=== PATIENT | female | born 1945 | race Caucasian/White ===

== ENCOUNTER → 2018-01-22 | Outpatient (CLI) | payer MEDICARE ==
[~2018-01-22] MED LIST: ASCO500 PO; CEPH500 PO; ERGO400 PO; FLAX PO; HYDCHL25; Hair, Skin & N1 EACH PO; IBUP800 PO; LEVFLO500 PO; LEVO750 PO; LEVSOD150; LORA1 PO; MECL25 PO; METR500 PO; ONDA4 PO; ONDA4ODT MM; RASPBERRY KETO100 MG PO; RXCLIN PO; RXLORA1 PO; RXONDA4ODT MM
== END | disposition home or self-care (01) ==
LOC: LAB SHORT 16:38 → OLS 16:38
PROVIDERS: Obstetrics & Gynecology Gynecology
DX: Z91.89 Other specified personal risk factors, not elsewhere classified (principal)
CPT/HCPCS: 87624; G0123

== ENCOUNTER → 2018-02-19 | Outpatient (CLI) | payer MEDICARE | END | disposition home or self-care (01) | LOC: LAB 17:00 → LAB SHORT 17:00 | DX: L29.8 Other pruritus (principal); L90.0 Lichen sclerosus et atrophicus | CPT/HCPCS: 87070; 87205 ==

== ENCOUNTER → 2019-02-04 | Outpatient (CLI) | payer MEDICARE ==
[2019-02-06 14:06] LABS: HPV 16 Negative (Negative); HPV 18 Negative (Negative); HPV OTHER HR TYPES Negative (Negative)
== END | disposition home or self-care (01) ==
LOC: LAB 18:18 → LAB SHORT 18:18
PROVIDERS: Obstetrics & Gynecology Gynecology
DX: Z91.89 Other specified personal risk factors, not elsewhere classified (principal)
CPT/HCPCS: 87624; G0123

== ENCOUNTER → 2019-12-21 | Outpatient (CLI) | payer MEDICARE | LOC: LAB SHORT 17:47 → LAB 17:47 | DX: Z48.817 Encounter for surgical aftercare following surgery on the skin and subcutaneous tissue (principal); L08.9 Local infection of the skin and subcutaneous tissue, unspecified; D48.5 Neoplasm of uncertain behavior of skin | CPT/HCPCS: 87070; 87077; 87147; 87186; 87205 ==

== ENCOUNTER 2021-03-20 14:15 | Day surgery (SDC) | payer MEDICARE ==
[~2021-03-20] VITALS: Ht 172.7 cm; Wt 113.5 kg
[2021-03-20] MEDS ORDERED: DULO30 (14:30)
--- NOTE | 2021-03-20 15:39 | NUR ---
03/20/21 1539 Rai Dudley S LATE ENTRY-1512 PATIENT STATES SHE IS READY TO GO HOME. PAIN IS ABOUT AN 8/10 IN BACK AND HIPS WHICH IS WHAT SHE CAME IN WITH.
== END 2021-03-20 15:15 | disposition home or self-care (01) ==
LOC: ORSCSDS 14:15
PROVIDERS: Anesthesiology
PROC: 3E0R33Z Introduction of Anti-inflammatory into Spinal Canal, Percutaneous Approach (ICD-10-PCS; principal; 2021-03-20 15:00)
DX: M54.16 Radiculopathy, lumbar region (principal); M96.1 Postlaminectomy syndrome, not elsewhere classified; I10 Essential (primary) hypertension; F32.9 Major depressive disorder, single episode, unspecified; E03.9 Hypothyroidism, unspecified; E66.9 Obesity, unspecified; Z68.39 Body mass index [BMI] 39.0-39.9, adult; Z79.899 Other long term (current) drug therapy
CPT/HCPCS: J1040

== ENCOUNTER 2023-05-18 22:54 | Inpatient (IN) | payer OTHER ==
[~2023-05-18] VITALS: Ht 177.8 cm; Wt 110.4 kg
[~2023-05-18 22:54] MED LIST changes: +DULO30
[2023-05-18 23:37] LABS: BASOPHILS ABSOLUTE AUTO 0.14 K/mm3 (0.00-0.23); BASOPHILS PERCENT AUTO 1 % (0-2); EOSINOPHILS ABSOLUTE AUTO 0.05 K/mm3 (0.00-0.68); EOSINOPHILS PERCENT AUTO 0 % (0-6); Hematocrit 38.6 % (33.0-51.0); Hemoglobin 12.2 g/dL (11.5-16.0); IMMATURE GRAN ABSOLUTE AUTO 0.31 K/mm3 (0.00-0.10); IMMATURE GRAN PERCENT AUTO 1 % (0-1); LYMPHOCYTES ABSOLUTE AUTO 1.09 K/mm3 (0.84-5.20); LYMPHOCYTES PERCENT AUTO 4 % (21-46); MONOCYTES ABSOLUTE AUTO 2.13 K/mm3 (0.16-1.47); MONOCYTES PERCENT AUTO 8 % (4-13); Mean Corpuscular HGB 20.6 pg (26.0-34.0); Mean Corpuscular HGB Conc 31.6 g/dL (31.5-36.5); Mean Corpuscular Volume 65 fL (80-100); NEUTROPHILS ABSOLUTE AUTO 23.83 K/mm3 (1.96-9.15); NEUTROPHILS PERCENT AUTO 87 % (41-73); Platelet Count 308 K/mm3 (150-400); RDW Coefficient Variation 16.7 % (11.7-14.2); RDW Standard Deviation 35.5 fL (35.1-46.3); Red Blood Cell Count 5.91 M/mm3 (3.80-5.20); White Blood Cell Count 27.55 K/mm3 (4.00-11.30)
[2023-05-19 00:12] LABS: Albumin, Blood 4.1 g/dL (3.4-5.0); Bilirubin, Total 0.5 mg/dL (0.1-1.0); Bun/Creatinine Ratio 32.9 (12.0-20.0); Calcium, Blood 9.9 mg/dL (8.5-10.1); Creatinine, Blood 0.67 mg/dL (0.40-1.00); Globulin, Blood 4.3 g/dL (2.2-4.0); Potassium, Blood 3.1 mmol/L (3.5-5.5); Total Protein, Blood 8.4 g/dL (6.4-8.2)
[2023-05-19 00:50] LABS: Magnesium, Blood 1.6 mg/dL (1.6-2.4)
--- NOTE | 2023-05-19 03:00 | NUR ---
ADMISSION REPORT RECEIVED FROM ER NURSE. PATIENT ARRIVES TO PCU 02. ABLE TO AMBULATE INTO BATHROOM WITH MINIMAL ASSIST AND IS ABLE TO VOID. PATIENT IS ALERT AND ORIENTED, STATES "I'M GROGGY FROM BEING HERE", ABLE TO ANSWER ALL QUESTIONS APPROPRIATELY. BP STABLE, TELE READING SINUS TACH 103, PATIENT ON RA WITH O2 SAT >90%. PATIENT ARRIVED TO PCU WITH SECOND NS BOLUS INFUSING PER ER ORDERS. RIGHT LOWER LEG OUTLINED AND TIMED BY ER NURSE. LEG IS WARM TO TOUCH AND PATIENT REPORTS PAIN. PEDAL PULSES PALPABLE AND STRONG BILATERALLY. MINIMAL SWELLING TO BILAT LOWER EXTREMS. ORIENTED TO ROOM AND CALL LIGHT SYSTEM, BED IN LOW POSITION.
[2023-05-19 03:21] VITALS: BP 146/61
[2023-05-19 03:47] LABS: Anti-Xa UFH, PHA Monitoring <0.10 IU/mL; International Normalized Ratio 0.99; Prothrombin Time Results 10.4 Sec (9.7-11.5)
--- NOTE | 2023-05-19 04:00 | NUR ---
UPDATE CRITICAL LACTIC ACID REPORTED TO THIS RN. CALL PLACED TO HOSPITALIST DR. SULLIVAN WITH RESULT. ORDERS RECIEVED FOR ADDITIONAL 1000ml BOLUS ORDERED AND REPEAT LACTIC DRAW AT 0600. KUNAL MCCULLOUGH AT BEDSIDE PLACING POWERGLIDE.
[2023-05-19 06:11] LABS: Hematocrit 31.4 % (33.0-51.0); Mean Corpuscular HGB 20.7 pg (26.0-34.0); Mean Corpuscular HGB Conc 31.8 g/dL (31.5-36.5); Mean Corpuscular Volume 65 fL (80-100); Mean Platelet Volume 9.9 fL (9.1-12.4); Platelet Count 277 K/mm3 (150-400); RDW Coefficient Variation 15.7 % (11.7-14.2); RDW Standard Deviation 35.3 fL (35.1-46.3); Red Blood Cell Count 4.83 M/mm3 (3.80-5.20); White Blood Cell Count 31.08 K/mm3 (4.00-11.30)
[2023-05-19 06:29] LABS: Bun/Creatinine Ratio 31.5 (12.0-20.0); Calcium, Blood 8.2 mg/dL (8.5-10.1); Creatinine, Blood 0.64 mg/dL (0.40-1.00); Potassium, Blood 3.5 mmol/L (3.5-5.5)
[2023-05-19 08:02] VITALS: BP 148/65
[2023-05-19 15:55] VITALS: BP 134/57
--- NOTE | 2023-05-19 16:11 | NUR ---
SHIFT SUMMARY PT IS A&OX3, BUT IS PRETTY DROWSY AFTER BEING MEDICATED FOR HER RLE PAIN. SHE CAN MAKE SOME CONFUSED COMMENTS WHEN SHE IS MEDICATED. SHE HAS BEEN HAVING CONSISTENT SHARP PAIN IN HER RLE. THE PT IS A 1P SBA W/ FWW TO THE BATHROOM. SHE HAS BEEN SWITCHED TO A HSS AND WAS MEDICATED AT BREAKFAST AND LUNCH WITH 3 UNITS PER HSC. AT DINNER PT'S CBG WAS 104 AND DID NOT NEED COVERAGE. SHE IS MEDICAL NO TELE AND HAS DENIED ANY ANGINA. SHE HAS BEEN ON RA AND SP02 >93% W/ NO SX OF SOB. PT STARTED ON ZOSYN IV IN ADDITION TO VANCOMYCIN FOR ANTIBIOTICS COVERAGE. FAMILY HAS BEEN INTO SEE THE PT AND THEY WERE UPDATED ON CARE PER PT REQUEST. FIRE IGNITION RISK HAS BEEN ASSESSED AND NO RISK HAS BEEN NOTIFIED AT
--- NOTE | 2023-05-19 17:15 | NUR ---
ASSUMED CARE OF PT: RECEIVED REPORT FROM KUNAL CARBALLO. PT RESTING IN BED WITH EYES CLOSED, NO ACUTE DISTRESS NOTED. PT's GRANDDAUGHTER IS AT BEDSIDE. WILL CONTINUE TO MONITOR AND TREAT ACCORDINGLY UNTIL CHANGE OF SHIFT.
[2023-05-19 20:26] VITALS: BP 142/71
[2023-05-20 00:22] VITALS: BP 141/62
[2023-05-20 03:21] VITALS: BP 146/71
[2023-05-20 03:45] LABS: BASOPHILS ABSOLUTE AUTO 0.08 K/mm3 (0.00-0.23); BASOPHILS PERCENT AUTO 0 % (0-2); EOSINOPHILS ABSOLUTE AUTO 0.01 K/mm3 (0.00-0.68); EOSINOPHILS PERCENT AUTO 0 % (0-6); Hematocrit 28.1 % (33.0-51.0); IMMATURE GRAN ABSOLUTE AUTO 0.21 K/mm3 (0.00-0.10); IMMATURE GRAN PERCENT AUTO 1 % (0-1); LYMPHOCYTES ABSOLUTE AUTO 1.18 K/mm3 (0.84-5.20); LYMPHOCYTES PERCENT AUTO 7 % (21-46); MONOCYTES ABSOLUTE AUTO 0.94 K/mm3 (0.16-1.47); MONOCYTES PERCENT AUTO 5 % (4-13); Mean Corpuscular HGB 20.6 pg (26.0-34.0); Mean Corpuscular Volume 64 fL (80-100); Mean Platelet Volume 10.1 fL (9.1-12.4); NEUTROPHILS ABSOLUTE AUTO 15.75 K/mm3 (1.96-9.15); NEUTROPHILS PERCENT AUTO 87 % (41-73); Platelet Count 208 K/mm3 (150-400); RDW Coefficient Variation 15.6 % (11.7-14.2); RDW Standard Deviation 35.8 fL (35.1-46.3); Red Blood Cell Count 4.36 M/mm3 (3.80-5.20); White Blood Cell Count 18.17 K/mm3 (4.00-11.30)
[2023-05-20 04:18] LABS: Albumin, Blood 2.9 g/dL (3.4-5.0); Anion Gap 3 mmol/L (6-16); Blood Urea Nitrogen 18 mg/dL (8-24); Bun/Creatinine Ratio 26.4 (12.0-20.0); CO2, Blood 28 mmol/L (21-32); Calcium, Blood 8.1 mg/dL (8.5-10.1); Chloride, Blood 99 mmol/L (98-108); Creatinine, Blood 0.68 mg/dL (0.40-1.00); Glomerular Filtration Rate 89 (60-); Glucose, Blood 149 mg/dL (70-99); Magnesium, Blood 1.7 mg/dL (1.6-2.4); Phosphorus, Blood 1.9 mg/dL (2.5-4.9); Potassium, Blood 2.9 mmol/L (3.5-5.5); Sodium, Blood 130 mmol/L (136-145)
--- NOTE | 2023-05-20 06:04 | NUR ---
SHIFT SUMMARY PT A/OX4 AND COOPERATIVE OF CARE. PT ABLE TO EXPRESS NEEDS AND CALLS APPROPIATE. VSS THROUGHOUT SHIFT WITH O2 SATS IN THE 90'S ON RA. PT INDEPENDENT IN BED AND SBA TO TOILET WITH FWW, TOLERATES WELL. NO REPORT OF CHEST PAIN/PRESSURE THROUGHOUT SHIFT. NO REORT OF SOB/DYSPNEA THROUGHOUT SHIFT. PT REPORTED PAIN TO RLE, TREATED PER EMAR. IV ABX RAN PER ORDERS. NO ACCUTE EPISODE DURING SHIFT.
[2023-05-20 08:27] VITALS: BP 152/66
[2023-05-20 11:39] VITALS: BP 137/59
[2023-05-20 15:49] VITALS: BP 149/78
[2023-05-20 17:31] LABS: Phosphorus, Blood 1.8 mg/dL (2.5-4.9); Potassium, Blood 3.1 mmol/L (3.5-5.5)
--- NOTE | 2023-05-20 18:49 | NUR ---
SHIFT SUMMARY: PT NAPS OFTEN, EASY TO WAKE, ORIENTED x4, COOPERATIVE W/CARE AND ABLE TO MAKE NEEDS KNOWN. O2 SATS >92% ON RA. PT DENIES SOB AND/OR CP. PT W/LOW GRADE TEMP IN THE AM, RESPONDS WELL TO TYLENOL. REDNESS CONTINUES TO RLE, IV ABX INFUSED PER ORDERS, BLOOD CULTURES PENDING. PT CONTINUES TO BE 1P ASSIST W/FWW TO BSC. AT THIS TIME, PT IS RESTING QUIETLY IN BED. WILL CONTINUE TO MONITOR AND TREAT ACCORDINGLY UNTIL CHANGE OF SHIFT.
[2023-05-20 20:00] VITALS: BP 143/66
[2023-05-21 00:18] VITALS: BP 169/99
[2023-05-21 00:34] LABS: Vancomycin, Trough 4.4 ug/mL (5.0-10.0)
--- NOTE | 2023-05-21 04:12 | NUR ---
ASSUMPTION OF CARE, SHIFT SUMMARY AND TRANSFER NOTE THIS RN ASSUMED CARE OF PT AT 1915, REPORT FROM PRISCILA SYED. PT A&O X4; PLEASANT AND COOPERATIVE WITH CARE. VSS; PT ON RA, SPO2 >96%. 99.7 TEMPERATURE. PT C/O OF RLE PAIN, MEDICATION PER EMAR. REDNESS IS NOTED TO HAVE SPREAD OUTSIDE PREVIOUS MARKINGS, ALSO SPREADING UP TO THIGH AREA. THIS RN REMARKED NEW AREA. RED AREAS HOT TO THE TOUCH. PT ABLE TO AMBULATE TO RESTROOM OR BSC W/SBA AND FWW. THIS RN NOTES PT IS WEAK AND BECOME FATIGUED EASILY, ALSO SOME DYSPNEA NOTED WITH EXERTION. SPO2 MAINTAINS. PT ALSO AGREES SHE IS SOB AND FEEL FATIGUE. PT C/O HEADACHES WELL. MEDICATION PER EMAR. ABX PER EMAR. ALSO NOTED K+ AND PHOS STILL LOW, RESIDENT NOTIFIED. ORDERS FOR 40 MEQ PO POTASSIUM AND K PHOS IV INFUSION. THIS RN STARTED THESE PER ORDERS, STILL INFUSING. PT RESTING AND CALL LIGHT IN REACH PT BEING TRANSFERRED TO SURGICAL FLOOR. REPORT TO KUNAL HER. PT BELONGINGS PACKED AND SENT WITH PT. PT LEFT VIA HOSPITAL BED AT 0430. PT STABLE, ON RA.
[2023-05-21 04:40] VITALS: BP 146/74
--- NOTE | 2023-05-21 04:43 | NUR ---
TRANSFER PT ARRIVAL TO UNIT FROM PCU. ALERT AND ORIENTED AND RESTING IN BED. IV ABX + IVF INFUSING PER ORDERS. PER PCU NURSE, LABS TO BE DRAWN APPROX 1 HOUR AFTER IV K+ FINISHED. CELLULITIS TO RLE OUTLINED AND BLE ELEVATED ON PILLOWS. PT DENIES NEED FOR PAIN MEDICATIONS AT THIS TIME. PT CURRENTLY FEBRILE AND PLANNING TO MEDICATE WITH TYLENOL. ORIENTED TO ROOM AND CALL LIGHT. WILL CONT TO MONITOR.
[2023-05-21 06:23] LABS: BASOPHILS ABSOLUTE AUTO 0.09 K/mm3 (0.00-0.23); BASOPHILS PERCENT AUTO 1 % (0-2); EOSINOPHILS ABSOLUTE AUTO 0.03 K/mm3 (0.00-0.68); EOSINOPHILS PERCENT AUTO 0 % (0-6); Hematocrit 29.9 % (33.0-51.0); Hemoglobin 9.6 g/dL (11.5-16.0); IMMATURE GRAN ABSOLUTE AUTO 0.16 K/mm3 (0.00-0.10); IMMATURE GRAN PERCENT AUTO 1 % (0-1); LYMPHOCYTES ABSOLUTE AUTO 1.55 K/mm3 (0.84-5.20); LYMPHOCYTES PERCENT AUTO 9 % (21-46); MONOCYTES ABSOLUTE AUTO 1.16 K/mm3 (0.16-1.47); MONOCYTES PERCENT AUTO 7 % (4-13); Mean Corpuscular HGB 20.3 pg (26.0-34.0); Mean Corpuscular HGB Conc 32.1 g/dL (31.5-36.5); Mean Corpuscular Volume 63 fL (80-100); Mean Platelet Volume 9.7 fL (9.1-12.4); NEUTROPHILS ABSOLUTE AUTO 13.45 K/mm3 (1.96-9.15); NEUTROPHILS PERCENT AUTO 82 % (41-73); Platelet Count 229 K/mm3 (150-400); RDW Coefficient Variation 15.5 % (11.7-14.2); RDW Standard Deviation 34.5 fL (35.1-46.3); Red Blood Cell Count 4.74 M/mm3 (3.80-5.20); White Blood Cell Count 16.44 K/mm3 (4.00-11.30)
[2023-05-21 06:54] LABS: Albumin, Blood 2.7 g/dL (3.4-5.0); Anion Gap 4 mmol/L (6-16); Blood Urea Nitrogen 8 mg/dL (8-24); Bun/Creatinine Ratio 13.2 (12.0-20.0); CO2, Blood 29 mmol/L (21-32); Calcium, Blood 8.2 mg/dL (8.5-10.1); Chloride, Blood 97 mmol/L (98-108); Glomerular Filtration Rate 92 (60-); Glucose, Blood 187 mg/dL (70-99); Phosphorus, Blood 1.9 mg/dL (2.5-4.9); Potassium, Blood 3.5 mmol/L (3.5-5.5); Sodium, Blood 130 mmol/L (136-145)
[2023-05-21 07:11] VITALS: BP 145/64
[2023-05-21 14:40] VITALS: BP 140/55
--- NOTE | 2023-05-21 17:28 | NUR ---
SHIFT SUMMARY PT A&OX4, VSS/RA, TAMMY PO-LOW PO INTAKE/PT REP NOT HUNGRY- "UNUSUAL FOR ME", PAIN MANAGED WITH TYLENOL AND ULTRAM, AMB SBA FWW, BEDREST W/BRP, VOIDING WELL, IVF/ABX PER EMAR PRN. WILL REPORT TO ONCOMING TAZ SYED.
[2023-05-21 19:14] VITALS: BP 147/75
[2023-05-22 01:35] LABS: BASOPHILS ABSOLUTE AUTO 0.15 K/mm3 (0.00-0.23); BASOPHILS PERCENT AUTO 1 % (0-2); EOSINOPHILS ABSOLUTE AUTO 0.32 K/mm3 (0.00-0.68); EOSINOPHILS PERCENT AUTO 2 % (0-6); Hematocrit 32.7 % (33.0-51.0); Hemoglobin 10.2 g/dL (11.5-16.0); IMMATURE GRAN ABSOLUTE AUTO 0.21 K/mm3 (0.00-0.10); IMMATURE GRAN PERCENT AUTO 1 % (0-1); LYMPHOCYTES ABSOLUTE AUTO 2.01 K/mm3 (0.84-5.20); LYMPHOCYTES PERCENT AUTO 13 % (21-46); MONOCYTES ABSOLUTE AUTO 1.57 K/mm3 (0.16-1.47); MONOCYTES PERCENT AUTO 10 % (4-13); Mean Corpuscular HGB Conc 31.2 g/dL (31.5-36.5); Mean Corpuscular Volume 64 fL (80-100); Mean Platelet Volume 9.6 fL (9.1-12.4); NEUTROPHILS ABSOLUTE AUTO 10.85 K/mm3 (1.96-9.15); NEUTROPHILS PERCENT AUTO 72 % (41-73); Platelet Count 292 K/mm3 (150-400); RDW Coefficient Variation 15.2 % (11.7-14.2); RDW Standard Deviation 34.5 fL (35.1-46.3); White Blood Cell Count 15.11 K/mm3 (4.00-11.30)
[2023-05-22 02:13] LABS: Anion Gap 5 mmol/L (6-16); Blood Urea Nitrogen 9 mg/dL (8-24); Bun/Creatinine Ratio 14.9 (12.0-20.0); CO2, Blood 32 mmol/L (21-32); Calcium, Blood 9.1 mg/dL (8.5-10.1); Chloride, Blood 97 mmol/L (98-108); Creatinine, Blood 0.61 mg/dL (0.40-1.00); Glomerular Filtration Rate 91 (60-); Glucose, Blood 143 mg/dL (70-99); Potassium, Blood 3.4 mmol/L (3.5-5.5); Sodium, Blood 134 mmol/L (136-145); Vancomycin, Trough 12.2 ug/mL (5.0-10.0)
[2023-05-22 02:53] VITALS: BP 150/67
--- NOTE | 2023-05-22 04:13 | NUR ---
SHIFT SUMMARY NO ACUTE CHANGES. PT CONT TO REPORT FEELING BETTER. CELLULITIS TO RLE LOOKS IMPROVED FROM LAST NOC. LESS REDNESS AND IS RECEDING FROM OUTLINE. PT TAKING ULTRAM AND TYLENOL FOR PAIN MANAGEMENT. IV ABX PER ORDERS. SBA/INDEP WITH FWW TO RESTROOM. PT USES CALL LIGHT APPROPRIATELY.
[2023-05-22 07:26] VITALS: BP 160/75
--- NOTE | 2023-05-22 12:11 | NUR ---
THIS NURSE IS TAKING OVER CARE AFTER GETTING REPORT FROM GELA SYED.
[2023-05-22 14:20] VITALS: BP 147/75
--- NOTE | 2023-05-22 15:11 | NUR ---
SHIFT SUMMARY: PATIENT IS A&OX4. VS ARE WNL AND IS ON RA. PATIENTS PAIN IS MANAGED WITH PO TRAMADOL AND TYLENOL. HER RIGHT LEG HAS A MARKING OF THE CELLULITIS. SHE IS ABLE TO MOVE FINGERS AND TOES WHEN ASKED. DENIES NUMBNESS OR TINGLING. SHE IS TOLERATING PO INTAKE AND IS VOIDING/HAVING BMS. PATIENT IS CURRENTLY LAYING IN BED WITH CALL LIGHT IN REACH. PATIENT CALLS APPROPRIATELY. THE PLAN IS TO CONTINUE IV ABX AND MANAGE PAIN.
[2023-05-22 20:04] VITALS: BP 126/60
[2023-05-23 01:02] LABS: BASOPHILS ABSOLUTE AUTO 0.14 K/mm3 (0.00-0.23); BASOPHILS PERCENT AUTO 1 % (0-2); EOSINOPHILS ABSOLUTE AUTO 0.53 K/mm3 (0.00-0.68); EOSINOPHILS PERCENT AUTO 4 % (0-6); Hematocrit 29.2 % (33.0-51.0); Hemoglobin 9.5 g/dL (11.5-16.0); IMMATURE GRAN ABSOLUTE AUTO 0.33 K/mm3 (0.00-0.10); IMMATURE GRAN PERCENT AUTO 3 % (0-1); LYMPHOCYTES ABSOLUTE AUTO 2.37 K/mm3 (0.84-5.20); LYMPHOCYTES PERCENT AUTO 19 % (21-46); MONOCYTES ABSOLUTE AUTO 1.83 K/mm3 (0.16-1.47); MONOCYTES PERCENT AUTO 14 % (4-13); Mean Corpuscular HGB 20.7 pg (26.0-34.0); Mean Corpuscular HGB Conc 32.5 g/dL (31.5-36.5); Mean Corpuscular Volume 64 fL (80-100); Mean Platelet Volume 9.4 fL (9.1-12.4); NEUTROPHILS ABSOLUTE AUTO 7.47 K/mm3 (1.96-9.15); NEUTROPHILS PERCENT AUTO 59 % (41-73); Platelet Count 304 K/mm3 (150-400); RDW Coefficient Variation 14.9 % (11.7-14.2); RDW Standard Deviation 33.2 fL (35.1-46.3); White Blood Cell Count 12.67 K/mm3 (4.00-11.30)
[2023-05-23 01:20] LABS: Vancomycin, Trough 15.6 ug/mL (5.0-10.0)
[2023-05-23 01:22] LABS: Albumin, Blood 2.6 g/dL (3.4-5.0); Albumin/Globulin Ratio 0.6 (0.8-1.8); Bilirubin, Total 0.7 mg/dL (0.1-1.0); Bun/Creatinine Ratio 16.3 (12.0-20.0); C-REACTIVE PROTEIN, EXT RANGE 8.31 mg/dL (0.000-0.300); Creatinine, Blood 0.61 mg/dL (0.40-1.00); Globulin, Blood 4.3 g/dL (2.2-4.0); Potassium, Blood 3.3 mmol/L (3.5-5.5); Total Protein, Blood 6.9 g/dL (6.4-8.2)
--- NOTE | 2023-05-23 02:58 | NUR ---
LATE ENTRY. ADMIT TO THE FLOOR. PT ARRIVED TO THE SURGICAL FLOOR ROOM 224 AT 2250 VIA BED. BEDSIDE REPORT RECEIVED FROM PACU NURSE. PT IS RESTING WITH EYES CLOSED, RDUI DRESSING COMPRESSED AND INTACT ON ANTERIOR ABDOMEN. 6 LAP SITES DRESSED WITH GAUZE. MILD TO MODERATE RED SANGUINEOUS DRAINAGE ON RUDI UPON ARRIVAL. VITAL SIGNS STABLE AT THIS TIME. CALL LIGHT IN REACH.
--- NOTE | 2023-05-23 04:56 | NUR ---
SHIFT SUMMARY NOC. PT PAIN CONTROLLED PER EMAR ORDERS. PT RIGHT LE IS MARKED/OUTLINED AND RECEEDING REDNESS. PT AMBULATING TO THE BR AND VOIDING APPROPRIATLY. PT'S RIGHT HAND IV D/C'D THIS SHIFT D/T LEAKING AND TENDERNESS. POWERGLIDE IS PATENT. PT RESTED WITH EYES CLOSED AND CALL LIGHT IN REACH.
[2023-05-23 05:57] VITALS: BP 145/69
[2023-05-23 07:00] VITALS: BP 167/70
[2023-05-23 15:47] VITALS: BP 141/58
[2023-05-23 15:48] VITALS: BP 141/58
[2023-05-23 20:07] VITALS: BP 124/50
[2023-05-24 02:52] VITALS: BP 149/65
[2023-05-24 04:23] LABS: BASOPHILS ABSOLUTE AUTO 0.14 K/mm3 (0.00-0.23); BASOPHILS PERCENT AUTO 1 % (0-2); EOSINOPHILS ABSOLUTE AUTO 0.49 K/mm3 (0.00-0.68); EOSINOPHILS PERCENT AUTO 4 % (0-6); Hematocrit 30.4 % (33.0-51.0); Hemoglobin 9.6 g/dL (11.5-16.0); IMMATURE GRAN ABSOLUTE AUTO 0.61 K/mm3 (0.00-0.10); IMMATURE GRAN PERCENT AUTO 4 % (0-1); LYMPHOCYTES ABSOLUTE AUTO 2.73 K/mm3 (0.84-5.20); LYMPHOCYTES PERCENT AUTO 20 % (21-46); MONOCYTES ABSOLUTE AUTO 1.81 K/mm3 (0.16-1.47); MONOCYTES PERCENT AUTO 13 % (4-13); Mean Corpuscular HGB 20.2 pg (26.0-34.0); Mean Corpuscular HGB Conc 31.6 g/dL (31.5-36.5); Mean Corpuscular Volume 64 fL (80-100); Mean Platelet Volume 9.8 fL (9.1-12.4); NEUTROPHILS ABSOLUTE AUTO 7.96 K/mm3 (1.96-9.15); NEUTROPHILS PERCENT AUTO 58 % (41-73); Platelet Count 359 K/mm3 (150-400); RDW Coefficient Variation 14.9 % (11.7-14.2); RDW Standard Deviation 33.2 fL (35.1-46.3); Red Blood Cell Count 4.76 M/mm3 (3.80-5.20); White Blood Cell Count 13.74 K/mm3 (4.00-11.30)
[2023-05-24 04:53] LABS: Bun/Creatinine Ratio 15.4 (12.0-20.0); C-REACTIVE PROTEIN, EXT RANGE 4.87 mg/dL (0.000-0.300); Creatinine, Blood 0.72 mg/dL (0.40-1.00); Potassium, Blood 3.1 mmol/L (3.5-5.5)
--- NOTE | 2023-05-24 06:36 | NUR ---
SHIFT SUMMARY ADMIT FOR R LEG CELLULITUS. A&OX4, VERY PLEASANT AND COOPERATIVE, INDEPENDANT IN ROOM. VSS, MEDICATED X1 W/ TRAMADOL THIS SHIFT. URINATING LARGE AMOUNTS. CELLULITIS OUTLINED DECREASING IN SIZE. PT REQUESTING SHOWER TODAY AND HOPEFUL FOR DISCHARGE TO HOME TODAY. NO ACUTE CHANGES THIS SHIFT.
[2023-05-24 07:22] VITALS: BP 151/68
[2023-05-24 14:38] VITALS: BP 126/51
--- NOTE | 2023-05-24 15:14 | NUR ---
SHIFT SUMMARY: RIGHT LEG CELLULITIS NO SIGNIFICANT CHANGES DURING SHIFT. SHE IS A&OX4. PAIN IS MANAGED WITH PO TYLENOL AND ULTRAM. HER RIGHT LEG HAS MARKINGS OF WHERE THE REDNESS HAS BEEN. HER REDNESS ON HER RIGHT LEG IS MAINLY FROM HER RIGHT LOWER HOWARD DOWN AND A SMALL AMOUNT BEHIND THE RIGHT KNEE. SHE IS INDEP. IN THE ROOM UNLESS SHE HAS IV ABX RUNNING THEN IS A SBA WITH CORD ASSISTANCE. SHE IS VOIDING AND TOLERATING PO INTAKE. PATIENT WAS ABLE TO SHOWER TODAY WELL. PATIENT IS CURRENTLY LAYING IN BED WITH CALL LIGHT IN REACH. THE PLAN IS TO CONTINUE IV ABX FOR ANOTHER DAY AND MANAGE PAIN.
[2023-05-24 19:48] VITALS: BP 140/63
[2023-05-25 02:09] LABS: Vancomycin, Trough 18.6 ug/mL (5.0-10.0)
[2023-05-25 04:36] VITALS: BP 145/66
--- NOTE | 2023-05-25 05:00 | NUR ---
SHIFT SUMMARY PT HAS DONE WELL THROUGH NIGHT. NO INCREASED PAIN OR SWELLING TO LLE. PT IS CONCERNED ABOUT DC HOME SHE DOES NOT FEEL SHE WILL BE ABLE TO MONITOR FOR ANY RETURN/WORSENING SX D/T INABILITY TO SEE BACK OF THIGH. PT SALINE LOCKED OTHER THAN FOR IV ABX. VSS.
[2023-05-25 07:41] VITALS: BP 148/64
[2023-05-25 10:18] LABS: BASOPHILS ABSOLUTE AUTO 0.16 K/mm3 (0.00-0.23); BASOPHILS PERCENT AUTO 1 % (0-2); EOSINOPHILS ABSOLUTE AUTO 0.39 K/mm3 (0.00-0.68); EOSINOPHILS PERCENT AUTO 3 % (0-6); Hematocrit 31.8 % (33.0-51.0); IMMATURE GRAN ABSOLUTE AUTO 0.54 K/mm3 (0.00-0.10); IMMATURE GRAN PERCENT AUTO 4 % (0-1); LYMPHOCYTES ABSOLUTE AUTO 2.37 K/mm3 (0.84-5.20); LYMPHOCYTES PERCENT AUTO 18 % (21-46); MONOCYTES PERCENT AUTO 8 % (4-13); Mean Corpuscular HGB 20.3 pg (26.0-34.0); Mean Corpuscular HGB Conc 31.4 g/dL (31.5-36.5); Mean Corpuscular Volume 65 fL (80-100); Mean Platelet Volume 9.5 fL (9.1-12.4); NEUTROPHILS ABSOLUTE AUTO 8.48 K/mm3 (1.96-9.15); NEUTROPHILS PERCENT AUTO 66 % (41-73); Platelet Count 402 K/mm3 (150-400); Red Blood Cell Count 4.92 M/mm3 (3.80-5.20); White Blood Cell Count 12.94 K/mm3 (4.00-11.30)
[2023-05-25 10:33] LABS: C-REACTIVE PROTEIN, EXT RANGE 3.36 mg/dL (0.000-0.300)
[2023-05-25 10:34] LABS: Creatinine, Blood 0.63 mg/dL (0.40-1.00); Potassium, Blood 3.8 mmol/L (3.5-5.5)
[2023-05-25 14:35] VITALS: BP 144/63
--- NOTE | 2023-05-25 17:46 | NUR ---
SHIFT SUMMARY PAIN HAS BEEN MANAGED WITH PO PAIN MEDICATION THIS SHIFT, PT REPORTS PAIN HAS IMPROVED OVERALL. REDNESS APPEARS TO BE RECEDING FROM ORIGINAL OUTLINE. PT IS INDEPENDENT TO THE BATHROOM WITH HER WALKER. PT RESTING IN BED, CALL LIGHT WITHIN REACH.
[2023-05-25 19:18] VITALS: BP 124/59
[2023-05-26 03:48] VITALS: BP 152/73
[2023-05-26 07:10] VITALS: BP 128/52
[2023-05-26 07:40] LABS: BASOPHILS ABSOLUTE AUTO 0.15 K/mm3 (0.00-0.23); BASOPHILS PERCENT AUTO 1 % (0-2); EOSINOPHILS ABSOLUTE AUTO 0.47 K/mm3 (0.00-0.68); EOSINOPHILS PERCENT AUTO 4 % (0-6); Hematocrit 30.6 % (33.0-51.0); Hemoglobin 9.8 g/dL (11.5-16.0); IMMATURE GRAN ABSOLUTE AUTO 0.55 K/mm3 (0.00-0.10); IMMATURE GRAN PERCENT AUTO 4 % (0-1); LYMPHOCYTES ABSOLUTE AUTO 2.39 K/mm3 (0.84-5.20); LYMPHOCYTES PERCENT AUTO 18 % (21-46); MONOCYTES PERCENT AUTO 9 % (4-13); Mean Corpuscular HGB 20.4 pg (26.0-34.0); Mean Corpuscular Volume 64 fL (80-100); Mean Platelet Volume 9.3 fL (9.1-12.4); NEUTROPHILS ABSOLUTE AUTO 8.46 K/mm3 (1.96-9.15); NEUTROPHILS PERCENT AUTO 64 % (41-73); Platelet Count 413 K/mm3 (150-400); RDW Coefficient Variation 14.9 % (11.7-14.2); RDW Standard Deviation 33.3 fL (35.1-46.3); Red Blood Cell Count 4.81 M/mm3 (3.80-5.20); White Blood Cell Count 13.22 K/mm3 (4.00-11.30)
[2023-05-26 07:51] LABS: Bun/Creatinine Ratio 18.5 (12.0-20.0); C-REACTIVE PROTEIN, EXT RANGE 2.67 mg/dL (0.000-0.300); Calcium, Blood 9.4 mg/dL (8.5-10.1); Creatinine, Blood 0.76 mg/dL (0.40-1.00); Potassium, Blood 4.2 mmol/L (3.5-5.5)
--- NOTE | 2023-05-26 08:28 | NUR ---
SUMMARY PT REPORTS FEELING BETTER ESPECIALLY BLISTER SISTE RLE WITH DRSNG CHANGE.
[2023-05-26 15:20] VITALS: BP 143/63
--- NOTE | 2023-05-26 17:01 | NUR ---
SUMMARY PT INDEPENDENT IN ROOM, IV ABX CHANGED TO PO TODAY, REPORTS HAVING ADEQUATE PAIN CONTROL WITH TYLENOL, REDNESS ON RLE APPEARS TO BE WITHIN MARKED LINES, NO ACUTE CHANGES THIS SHIFT.
[2023-05-26 19:50] VITALS: BP 143/73
--- NOTE | 2023-05-26 22:50 | NUR ---
TRAMADOL: PT C/O INC PAIN THIS HALI, REP RELIEF W/TRAMADOL. TRAMADOL NOTED TO HAVE BEEN D/C. CALL PLACED TO HOSPITALIST TODD Franco NEW ORDER FOR TRAMADOL REC. PHARMACY REP CONFLICT W/TRAMADOL AND LINEZOLID. HOSPITALIST TODD UPDATED ON CONFLICT, PER HOSPITALIST, OK TO KEEP BOTH MEDS ORDERED. PRIMARY RN UPDATED.
[2023-05-27 05:40] VITALS: BP 116/49
[2023-05-27 05:50] LABS: BASOPHILS ABSOLUTE AUTO 0.08 K/mm3 (0.00-0.23); BASOPHILS PERCENT AUTO 1 % (0-2); EOSINOPHILS ABSOLUTE AUTO 0.35 K/mm3 (0.00-0.68); EOSINOPHILS PERCENT AUTO 2 % (0-6); Hematocrit 30.6 % (33.0-51.0); Hemoglobin 9.7 g/dL (11.5-16.0); IMMATURE GRAN ABSOLUTE AUTO 0.32 K/mm3 (0.00-0.10); IMMATURE GRAN PERCENT AUTO 2 % (0-1); LYMPHOCYTES ABSOLUTE AUTO 2.13 K/mm3 (0.84-5.20); LYMPHOCYTES PERCENT AUTO 15 % (21-46); MONOCYTES ABSOLUTE AUTO 1.25 K/mm3 (0.16-1.47); MONOCYTES PERCENT AUTO 9 % (4-13); Mean Corpuscular HGB 20.2 pg (26.0-34.0); Mean Corpuscular HGB Conc 31.7 g/dL (31.5-36.5); Mean Corpuscular Volume 64 fL (80-100); Mean Platelet Volume 9.5 fL (9.1-12.4); NEUTROPHILS ABSOLUTE AUTO 10.16 K/mm3 (1.96-9.15); NEUTROPHILS PERCENT AUTO 71 % (41-73); Platelet Count 457 K/mm3 (150-400); RDW Coefficient Variation 14.8 % (11.7-14.2); White Blood Cell Count 14.29 K/mm3 (4.00-11.30)
--- NOTE | 2023-05-27 06:01 | NUR ---
SUMMARY PT HAD EMESIS X 1 TONIGHT . RESOLVED WITH ZOFRAN.
[2023-05-27 06:12] LABS: Albumin, Blood 2.8 g/dL (3.4-5.0); Albumin/Globulin Ratio 0.6 (0.8-1.8); Bilirubin, Total 0.3 mg/dL (0.1-1.0); Bun/Creatinine Ratio 21.2 (12.0-20.0); C-REACTIVE PROTEIN, EXT RANGE 2.44 mg/dL (0.000-0.300); Calcium, Blood 9.3 mg/dL (8.5-10.1); Creatinine, Blood 0.66 mg/dL (0.40-1.00); Globulin, Blood 4.7 g/dL (2.2-4.0); Potassium, Blood 4.4 mmol/L (3.5-5.5); Total Protein, Blood 7.5 g/dL (6.4-8.2)
[2023-05-27 07:32] VITALS: BP 131/59
[2023-05-27 15:06] VITALS: BP 109/96
--- NOTE | 2023-05-27 19:09 | NUR ---
SHIFT SUMMARY PT RESTARTED ON IV ABX THIS SHIFT. NO INCREASED REDNESS OR PAIN IN LLE. MEDICATED WITH TRAMADOL ONCE FOR PAIN. DENIES N/V.
[2023-05-27 19:21] VITALS: BP 124/51
[2023-05-28 05:34] LABS: BASOPHILS ABSOLUTE AUTO 0.09 K/mm3 (0.00-0.23); BASOPHILS PERCENT AUTO 1 % (0-2); EOSINOPHILS ABSOLUTE AUTO 0.51 K/mm3 (0.00-0.68); EOSINOPHILS PERCENT AUTO 5 % (0-6); Hemoglobin 9.9 g/dL (11.5-16.0); IMMATURE GRAN ABSOLUTE AUTO 0.19 K/mm3 (0.00-0.10); IMMATURE GRAN PERCENT AUTO 2 % (0-1); LYMPHOCYTES ABSOLUTE AUTO 2.61 K/mm3 (0.84-5.20); LYMPHOCYTES PERCENT AUTO 23 % (21-46); MONOCYTES ABSOLUTE AUTO 1.07 K/mm3 (0.16-1.47); MONOCYTES PERCENT AUTO 10 % (4-13); Mean Corpuscular HGB Conc 30.9 g/dL (31.5-36.5); Mean Corpuscular Volume 65 fL (80-100); Mean Platelet Volume 9.5 fL (9.1-12.4); NEUTROPHILS ABSOLUTE AUTO 6.75 K/mm3 (1.96-9.15); NEUTROPHILS PERCENT AUTO 60 % (41-73); Platelet Count 522 K/mm3 (150-400); RDW Coefficient Variation 14.8 % (11.7-14.2); RDW Standard Deviation 33.9 fL (35.1-46.3); Red Blood Cell Count 4.94 M/mm3 (3.80-5.20); White Blood Cell Count 11.22 K/mm3 (4.00-11.30)
[2023-05-28 06:14] LABS: Albumin, Blood 3.1 g/dL (3.4-5.0); Albumin/Globulin Ratio 0.6 (0.8-1.8); Bilirubin, Total 0.4 mg/dL (0.1-1.0); Bun/Creatinine Ratio 22.6 (12.0-20.0); C-REACTIVE PROTEIN, EXT RANGE 1.97 mg/dL (0.000-0.300); Calcium, Blood 9.6 mg/dL (8.5-10.1); Creatinine, Blood 0.8 mg/dL (0.40-1.00); Globulin, Blood 4.9 g/dL (2.2-4.0)
[2023-05-28 06:16] VITALS: BP 133/51
--- NOTE | 2023-05-28 07:17 | NUR ---
SHIFT SUMMARY PT A&OX4, VERY PLEASANT AND COOPERATIVE. CELLULITIS TO RLE CONTINUES TO BE PAINFUL W/ AMBULATION. PT SLEPT MOST OF SHIFT W/ FEW TRIPS TO BATHROOM. ABX CONTINUED ORDERED. NO ACUTE CHANGES THIS SHIFT. CALL LIGHT W/IN REACH. PT HOPEFUL FOR DISCHARGE TO HOME TODAY.
[2023-05-28 07:27] VITALS: BP 134/63
[2023-05-28 11:06] LABS: Magnesium, Blood 2.3 mg/dL (1.6-2.4); Phosphorus, Blood 4.1 mg/dL (2.5-4.9)
[2023-05-28 15:17] VITALS: BP 154/65
[2023-05-28 19:29] VITALS: BP 131/89
--- NOTE | 2023-05-28 19:34 | NUR ---
SHIFT SUMMARY PT HAD INCREASED PAIN IN LLE/ANKLE AREA THIS SHIFT. INCREASED REDNESS AND WARMTH COMPARED TO THIS RN PREV ASSESSMENT. MD NOTIFIED. CONTINUE IV ABX AT THIS TIME AND IF STILL WORSENING TOMORROW POSSIBLE REPEAT IMMAGING. PT IND TO BATHROOM. TOLERATING REGULAR DIET WITH NO N/V.
[2023-05-29 03:42] VITALS: BP 137/76
[2023-05-29 06:38] LABS: BASOPHILS ABSOLUTE AUTO 0.14 K/mm3 (0.00-0.23); BASOPHILS PERCENT AUTO 1 % (0-2); EOSINOPHILS ABSOLUTE AUTO 0.39 K/mm3 (0.00-0.68); EOSINOPHILS PERCENT AUTO 3 % (0-6); Hematocrit 32.6 % (33.0-51.0); Hemoglobin 10.4 g/dL (11.5-16.0); IMMATURE GRAN ABSOLUTE AUTO 0.17 K/mm3 (0.00-0.10); IMMATURE GRAN PERCENT AUTO 1 % (0-1); LYMPHOCYTES ABSOLUTE AUTO 2.44 K/mm3 (0.84-5.20); LYMPHOCYTES PERCENT AUTO 18 % (21-46); MONOCYTES ABSOLUTE AUTO 1.38 K/mm3 (0.16-1.47); MONOCYTES PERCENT AUTO 10 % (4-13); Mean Corpuscular HGB 20.6 pg (26.0-34.0); Mean Corpuscular HGB Conc 31.9 g/dL (31.5-36.5); Mean Corpuscular Volume 65 fL (80-100); Mean Platelet Volume 9.5 fL (9.1-12.4); NEUTROPHILS ABSOLUTE AUTO 9.35 K/mm3 (1.96-9.15); NEUTROPHILS PERCENT AUTO 68 % (41-73); Platelet Count 621 K/mm3 (150-400); RDW Coefficient Variation 14.9 % (11.7-14.2); RDW Standard Deviation 33.7 fL (35.1-46.3); Red Blood Cell Count 5.05 M/mm3 (3.80-5.20); White Blood Cell Count 13.87 K/mm3 (4.00-11.30)
--- NOTE | 2023-05-29 06:47 | NUR ---
SHIFT SUMMARY PT CONTINUES TO HAVE INCREASED PAIN TO RLE. PT REPORTS LEG "JUMPS" R/T PAIN, THAT IS RELIEVED WELL W/ 5MG ALYSON. RLE CONTINUES TO BE TENDER, SWOLLEN, RED, WARM TO TOUCH. PT A&OX4, VERY PLEASANT AND THANKFUL FOR CARE. INDEP TO BATHROOM W/ FWW. PT AWAITING LAB RESULTS AND POSSIBLE CT TO RLE TODAY. NO ACUTE CHANGES THIS SHIFT. CALL LIGHT W/ IN REACH.
[2023-05-29 06:55] LABS: C-REACTIVE PROTEIN, EXT RANGE 1.97 mg/dL (0.000-0.300)
[2023-05-29 06:57] LABS: Albumin, Blood 3.2 g/dL (3.4-5.0); Albumin/Globulin Ratio 0.6 (0.8-1.8); Bilirubin, Total 0.4 mg/dL (0.1-1.0); Bun/Creatinine Ratio 19.4 (12.0-20.0); Calcium, Blood 9.6 mg/dL (8.5-10.1); Creatinine, Blood 0.88 mg/dL (0.40-1.00); Globulin, Blood 5.4 g/dL (2.2-4.0); Potassium, Blood 3.7 mmol/L (3.5-5.5); Total Protein, Blood 8.6 g/dL (6.4-8.2)
[2023-05-29 07:34] VITALS: BP 142/59
[2023-05-29 14:29] VITALS: BP 136/61
--- NOTE | 2023-05-29 17:30 | NUR ---
SUMMARY CONT. TO HAVE REDNESS ON RLE, PT HAS BEEN ELEVATING RLE WHILE IN BED, INDEPENDENT TO THE BATHROOM, REPORTS HAVING ADEQUATE PAIN CONTROL WITH TYLENOL AND OXYCODONE, DENIES ANY OTHER DISCOMFORT, MRI OF RLE NOTED ORDERED, NO ACUTE CHANGES THIS SHIFT.
[2023-05-29 20:55] VITALS: BP 145/61
[2023-05-30 04:37] VITALS: BP 147/65
[2023-05-30 05:19] LABS: BASOPHILS ABSOLUTE AUTO 0.16 K/mm3 (0.00-0.23); BASOPHILS PERCENT AUTO 1 % (0-2); EOSINOPHILS ABSOLUTE AUTO 0.29 K/mm3 (0.00-0.68); EOSINOPHILS PERCENT AUTO 3 % (0-6); Hematocrit 31.6 % (33.0-51.0); Hemoglobin 9.9 g/dL (11.5-16.0); IMMATURE GRAN ABSOLUTE AUTO 0.07 K/mm3 (0.00-0.10); IMMATURE GRAN PERCENT AUTO 1 % (0-1); LYMPHOCYTES ABSOLUTE AUTO 2.46 K/mm3 (0.84-5.20); LYMPHOCYTES PERCENT AUTO 21 % (21-46); MONOCYTES ABSOLUTE AUTO 1.32 K/mm3 (0.16-1.47); MONOCYTES PERCENT AUTO 11 % (4-13); Mean Corpuscular HGB 20.2 pg (26.0-34.0); Mean Corpuscular HGB Conc 31.3 g/dL (31.5-36.5); Mean Corpuscular Volume 65 fL (80-100); Mean Platelet Volume 9.4 fL (9.1-12.4); NEUTROPHILS ABSOLUTE AUTO 7.41 K/mm3 (1.96-9.15); NEUTROPHILS PERCENT AUTO 63 % (41-73); Platelet Count 574 K/mm3 (150-400); RDW Coefficient Variation 14.7 % (11.7-14.2); RDW Standard Deviation 33.4 fL (35.1-46.3); White Blood Cell Count 11.71 K/mm3 (4.00-11.30)
[2023-05-30 05:46] LABS: Albumin, Blood 2.9 g/dL (3.4-5.0); Anion Gap 5 mmol/L (6-16); Blood Urea Nitrogen 16 mg/dL (8-24); Bun/Creatinine Ratio 22.2 (12.0-20.0); CO2, Blood 29 mmol/L (21-32); Calcium, Blood 9.4 mg/dL (8.5-10.1); Chloride, Blood 103 mmol/L (98-108); Creatinine, Blood 0.72 mg/dL (0.40-1.00); Glomerular Filtration Rate 86 (60-); Glucose, Blood 131 mg/dL (70-99); Phosphorus, Blood 3.1 mg/dL (2.5-4.9); Potassium, Blood 3.9 mmol/L (3.5-5.5); Sodium, Blood 137 mmol/L (136-145)
[2023-05-30 07:18] VITALS: BP 132/70
--- NOTE | 2023-05-30 07:48 | NUR ---
SUMMARY PT SLEPT MOST OF SHIFT.DR LOPEZ HERE THIS AM TO SEE PT.REVIEWED LABS.DR INSTRUCTED FOR PT TO HAVE R LEG COATED IN NONSTICK SURFACE/CREAM TO LEG THEN SOFT BATTING USED BENEATH CASTING MATERIAL,THEN JOJO WRAP,BUT NOT PLACED TIGHTLY IN HOPES OF REDUCING EDEMAAND IMPROVE CIRCULATORY RETURN.
[2023-05-30 14:54] VITALS: BP 143/62
--- NOTE | 2023-05-30 17:12 | NUR ---
LOTION APPLIED TO RLE, COTTON WRAP APPLIED, WRAPPED W/ JOJO WRAP, PT ON RECLINER W/ LEGS RECLINED AND ELEVATED.
[2023-05-30 19:14] VITALS: BP 103/56
[2023-05-31 04:15] VITALS: BP 139/61
[2023-05-31 04:55] LABS: BASOPHILS ABSOLUTE AUTO 0.23 K/mm3 (0.00-0.23); BASOPHILS PERCENT AUTO 2 % (0-2); EOSINOPHILS ABSOLUTE AUTO 0.26 K/mm3 (0.00-0.68); EOSINOPHILS PERCENT AUTO 2 % (0-6); Hematocrit 34.1 % (33.0-51.0); Hemoglobin 10.7 g/dL (11.5-16.0); IMMATURE GRAN ABSOLUTE AUTO 0.06 K/mm3 (0.00-0.10); IMMATURE GRAN PERCENT AUTO 1 % (0-1); LYMPHOCYTES PERCENT AUTO 26 % (21-46); MONOCYTES ABSOLUTE AUTO 1.41 K/mm3 (0.16-1.47); MONOCYTES PERCENT AUTO 11 % (4-13); Mean Corpuscular HGB Conc 31.4 g/dL (31.5-36.5); Mean Corpuscular Volume 64 fL (80-100); Mean Platelet Volume 9.3 fL (9.1-12.4); NEUTROPHILS ABSOLUTE AUTO 7.65 K/mm3 (1.96-9.15); NEUTROPHILS PERCENT AUTO 59 % (41-73); Platelet Count 656 K/mm3 (150-400); RDW Coefficient Variation 14.6 % (11.7-14.2); RDW Standard Deviation 31.9 fL (35.1-46.3); Red Blood Cell Count 5.35 M/mm3 (3.80-5.20); White Blood Cell Count 13.01 K/mm3 (4.00-11.30)
[2023-05-31 05:29] LABS: Albumin, Blood 3.3 g/dL (3.4-5.0); Anion Gap 6 mmol/L (6-16); Blood Urea Nitrogen 15 mg/dL (8-24); Bun/Creatinine Ratio 19.2 (12.0-20.0); CO2, Blood 28 mmol/L (21-32); Calcium, Blood 9.8 mg/dL (8.5-10.1); Chloride, Blood 103 mmol/L (98-108); Creatinine, Blood 0.78 mg/dL (0.40-1.00); Glomerular Filtration Rate 78 (60-); Glucose, Blood 134 mg/dL (70-99); Potassium, Blood 3.9 mmol/L (3.5-5.5); Sodium, Blood 137 mmol/L (136-145)
[2023-05-31 07:13] VITALS: BP 142/80
--- NOTE | 2023-05-31 07:16 | NUR ---
SUMMARY MED X1 FOR PAIN TONIGHT.WBC INCREASED THIS AM. DAY RN AGREES TO FOLLOW UP REGARDING THIS. ? NEW BC? LACTIC?
--- NOTE | 2023-05-31 15:19 | NUR ---
SHIFT SUMMARY: CELLULITIS OF RIGHT LEG PATIENT IS A&OX4. VS ARE WNL AND IS ON RA. PAIN IS MANAGED WITH PO TYLENOL AND OXY. HER RIGHT LEG HAS LOTION, KERLEX, AND AN JOJO WRAP THAT IS C/D/I. SHE IS ABLE TO MOVE ALL FINGERS AND TOES. PATIENT REPORTED "I WAS ABLE TO TAKE THE ANTIBIOTICS ORALLY WITHOUT FEELING NAUSEOUS AND I STILL DON'T FEEL NAUSEOUS". SHE IS INDEP. IN THE ROOM WITH A FWW. SHE IS TOLERATING PO INTAKE AND IS VOIDING/HAVING BMS. PATIENT IS LAYING IN BED WITH RIGHT LEG ELEVATED ON PILLOWS AND CALL LIGHT IN REACH.
[2023-05-31 15:58] VITALS: BP 140/67
[2023-05-31 19:12] VITALS: BP 147/72
[2023-06-01 04:02] VITALS: BP 142/73
[2023-06-01 04:18] LABS: BASOPHILS ABSOLUTE AUTO 0.17 K/mm3 (0.00-0.23); BASOPHILS PERCENT AUTO 1 % (0-2); EOSINOPHILS ABSOLUTE AUTO 0.16 K/mm3 (0.00-0.68); EOSINOPHILS PERCENT AUTO 1 % (0-6); Hematocrit 30.6 % (33.0-51.0); Hemoglobin 9.7 g/dL (11.5-16.0); Mean Corpuscular HGB 20.1 pg (26.0-34.0); Mean Corpuscular HGB Conc 31.7 g/dL (31.5-36.5); Mean Corpuscular Volume 64 fL (80-100); Mean Platelet Volume 9.3 fL (9.1-12.4); Platelet Count 633 K/mm3 (150-400); RDW Coefficient Variation 14.6 % (11.7-14.2); RDW Standard Deviation 31.9 fL (35.1-46.3); Red Blood Cell Count 4.82 M/mm3 (3.80-5.20); White Blood Cell Count 12.28 K/mm3 (4.00-11.30)
[2023-06-01 04:27] LABS: IMMATURE GRAN ABSOLUTE AUTO 0.05 K/mm3 (0.00-0.10); IMMATURE GRAN PERCENT AUTO 0 % (0-1); LYMPHOCYTES ABSOLUTE AUTO 3.17 K/mm3 (0.84-5.20); LYMPHOCYTES PERCENT AUTO 26 % (21-46); MONOCYTES ABSOLUTE AUTO 1.33 K/mm3 (0.16-1.47); MONOCYTES PERCENT AUTO 11 % (4-13); NEUTROPHILS PERCENT AUTO 60 % (41-73)
[2023-06-01 04:39] LABS: Anion Gap 3 mmol/L (6-16); Blood Urea Nitrogen 16 mg/dL (8-24); Bun/Creatinine Ratio 22.6 (12.0-20.0); CO2, Blood 32 mmol/L (21-32); Calcium, Blood 9.6 mg/dL (8.5-10.1); Chloride, Blood 103 mmol/L (98-108); Creatinine, Blood 0.71 mg/dL (0.40-1.00); Glomerular Filtration Rate 87 (60-); Glucose, Blood 122 mg/dL (70-99); Magnesium, Blood 2.1 mg/dL (1.6-2.4); Phosphorus, Blood 3.3 mg/dL (2.5-4.9); Potassium, Blood 3.6 mmol/L (3.5-5.5); Sodium, Blood 138 mmol/L (136-145)
--- NOTE | 2023-06-01 05:16 | NUR ---
SHIFT SUMMARY RLE CELLULITIS, DRESSING CHANGED THIS SHIFT BY THIS RN. ELEVATED ON PILLOWS. AMBULATING IN ROOM, VOIDING,PASSING FLATUS,TOLERATING PO INTAKE. PAIN WELL MANAGED. PATIENT IS AOX4, IND. VSS, CALL LIGHT IN REACH.
[2023-06-01 07:13] VITALS: BP 160/62
[2023-06-01] MEDS ORDERED: ACET500 PO (12:50)
[2023-06-01] MEDS ORDERED: AMOCLA875 PO (12:51)
[2023-06-01] MEDS ORDERED: GABA100 PO (13:02)
[2023-06-01] MEDS ORDERED: LINE600 PO (13:02)
[2023-06-01] MEDS ORDERED: Prednisone10 MG PO (13:03)
[2023-06-01] MEDS ORDERED: OXAYDO5 M1 PO (13:03)
[2023-06-01] MEDS ORDERED: ONDA4ODT SL (13:03)
[2023-06-01] MEDS ORDERED: VISBIOME 112.51 EACH PO (13:04)
== END 2023-06-01 14:04 | disposition home or self-care (01) | DRG 871 ==
LOC: ER 22:54 → PCU 05-19 01:54 → SURS 05-19 01:54 → PCU 05-19 02:47 → SURS 05-21 04:40
PROVIDERS: Family Medicine; Internal Medicine; Student in an Organized Health Care Education/Training Program; ADMIT Internal Medicine
DX: A41.9 Sepsis, unspecified organism (principal); R65.21 Severe sepsis with septic shock; L03.115 Cellulitis of right lower limb; E87.20 Acidosis, unspecified; I87.2 Venous insufficiency (chronic) (peripheral); E11.9 Type 2 diabetes mellitus without complications; Z66 Do not resuscitate; E03.9 Hypothyroidism, unspecified; I10 Essential (primary) hypertension; D56.9 Thalassemia, unspecified; M19.90 Unspecified osteoarthritis, unspecified site; E83.39 Other disorders of phosphorus metabolism; G43.909 Migraine, unspecified, not intractable, without status migrainosus; E87.6 Hypokalemia; Z86.718 Personal history of other venous thrombosis and embolism; Z88.2 Allergy status to sulfonamides; Z88.1 Allergy status to other antibiotic agents; Z88.8 Allergy status to other drugs, medicaments and biological substances; Z79.890 Hormone replacement therapy; Z79.899 Other long term (current) drug therapy; Z90.89 Acquired absence of other organs; Z90.49 Acquired absence of other specified parts of digestive tract; Z90.710 Acquired absence of both cervix and uterus; Z90.721 Acquired absence of ovaries, unilateral; Z87.891 Personal history of nicotine dependence; Z98.890 Other specified postprocedural states
CPT/HCPCS: 36415; 73701; 73720; 80048; 80053; 80069; 80202; 82550; 82947; 83036; 83605; 83735; 84100; 84132; 85025; 85027; 85520; 85610; 85651; 85730; 86140; 87040; 93971; 96361; 96365; 96375; 96376; 99285-25; A9270; A9579; C1751; J0878; J1644; J1650; J2405; J2543; J3010; J3370; J7030; J7050; J7060; J7512; Q9967

== ENCOUNTER → 2023-06-16 | Outpatient (CLI) | payer OTHER ==
[~2023-06-16] MED LIST changes: +ACET500 PO; +AMOCLA875 PO; +GABA100 PO; +LINE600 PO; +ONDA4ODT SL; +OXAYDO5 M1 PO; +Prednisone10 MG PO; +VISBIOME 112.51 EACH PO
[2023-06-16 13:42] LABS: BASOPHILS ABSOLUTE AUTO 0.11 K/mm3 (0.00-0.23); BASOPHILS PERCENT AUTO 1 % (0-2); EOSINOPHILS ABSOLUTE AUTO 0.27 K/mm3 (0.00-0.68); EOSINOPHILS PERCENT AUTO 3 % (0-6); Hematocrit 35.8 % (33.0-51.0); Hemoglobin 11.3 g/dL (11.5-16.0); IMMATURE GRAN ABSOLUTE AUTO 0.04 K/mm3 (0.00-0.10); IMMATURE GRAN PERCENT AUTO 0 % (0-1); LYMPHOCYTES ABSOLUTE AUTO 2.09 K/mm3 (0.84-5.20); LYMPHOCYTES PERCENT AUTO 20 % (21-46); MONOCYTES ABSOLUTE AUTO 1.02 K/mm3 (0.16-1.47); MONOCYTES PERCENT AUTO 10 % (4-13); Mean Corpuscular HGB 20.4 pg (26.0-34.0); Mean Corpuscular HGB Conc 31.6 g/dL (31.5-36.5); Mean Corpuscular Volume 65 fL (80-100); Mean Platelet Volume 9.4 fL (9.1-12.4); NEUTROPHILS PERCENT AUTO 66 % (41-73); Platelet Count 340 K/mm3 (150-400); RDW Coefficient Variation 17.3 % (11.7-14.2); RDW Standard Deviation 36.4 fL (35.1-46.3); Red Blood Cell Count 5.53 M/mm3 (3.80-5.20); White Blood Cell Count 10.23 K/mm3 (4.00-11.30)
== END ==
LOC: LAB SHORT 13:38 → LAB 13:38
PROVIDERS: Physician Assistant Surgical
DX: L03.115 Cellulitis of right lower limb (principal)
CPT/HCPCS: 85025

== ENCOUNTER 2023-06-19 15:47 | Emergency (ER) | payer OTHER ==
[~2023-06-19] VITALS: Ht 172.7 cm; Wt 106.6 kg
[2023-06-19 16:38] LABS: BASOPHILS PERCENT AUTO 1 % (0-2); EOSINOPHILS ABSOLUTE AUTO 0.38 K/mm3 (0.00-0.68); EOSINOPHILS PERCENT AUTO 4 % (0-6); Hematocrit 34.5 % (33.0-51.0); Hemoglobin 10.8 g/dL (11.5-16.0); IMMATURE GRAN ABSOLUTE AUTO 0.02 K/mm3 (0.00-0.10); IMMATURE GRAN PERCENT AUTO 0 % (0-1); LYMPHOCYTES ABSOLUTE AUTO 2.29 K/mm3 (0.84-5.20); LYMPHOCYTES PERCENT AUTO 24 % (21-46); MONOCYTES ABSOLUTE AUTO 0.99 K/mm3 (0.16-1.47); MONOCYTES PERCENT AUTO 11 % (4-13); Mean Corpuscular HGB 20.7 pg (26.0-34.0); Mean Corpuscular HGB Conc 31.3 g/dL (31.5-36.5); Mean Corpuscular Volume 66 fL (80-100); Mean Platelet Volume 9.6 fL (9.1-12.4); NEUTROPHILS ABSOLUTE AUTO 5.69 K/mm3 (1.96-9.15); NEUTROPHILS PERCENT AUTO 60 % (41-73); Platelet Count 334 K/mm3 (150-400); RDW Coefficient Variation 17.4 % (11.7-14.2); RDW Standard Deviation 38.1 fL (35.1-46.3); Red Blood Cell Count 5.23 M/mm3 (3.80-5.20); White Blood Cell Count 9.47 K/mm3 (4.00-11.30)
[2023-06-19 17:03] LABS: Albumin, Blood 3.3 g/dL (3.4-5.0); Albumin/Globulin Ratio 0.7 (0.8-1.8); Bilirubin, Total 0.2 mg/dL (0.1-1.0); Bun/Creatinine Ratio 30.3 (12.0-20.0); Calcium, Blood 9.7 mg/dL (8.5-10.1); Creatinine, Blood 0.59 mg/dL (0.40-1.00); Globulin, Blood 4.9 g/dL (2.2-4.0); Potassium, Blood 3.6 mmol/L (3.5-5.5); Total Protein, Blood 8.2 g/dL (6.4-8.2)
[2023-06-19] MEDS ORDERED: AMOCLA875 PO (18:52)
[2023-06-19 19:00] VITALS: BP 136/78
== END 2023-06-19 19:45 | disposition home or self-care (01) ==
LOC: ER 15:47
PROVIDERS: Physician Assistant
DX: L03.115 Cellulitis of right lower limb (principal); Z23 Encounter for immunization; Z88.1 Allergy status to other antibiotic agents; Z88.2 Allergy status to sulfonamides; Z79.890 Hormone replacement therapy; Z79.899 Other long term (current) drug therapy; Z79.52 Long term (current) use of systemic steroids; Z87.891 Personal history of nicotine dependence; Z98.890 Other specified postprocedural states
CPT/HCPCS: 80053; 85025; 90471; 90714; 90715; 93971; 99284-25

== ENCOUNTER 2024-02-04 02:44 | Emergency (ER) | payer OTHER ==
[~2024-02-04] VITALS: Ht 172.7 cm; Wt 106.6 kg
[2024-02-04] MEDS ORDERED: HYDROCODONE-AC1 EA19 PO (03:11)
[2024-02-04] MEDS ORDERED: OxyCODONE 5 mg/Acetamin 325 mg TABLET PO ONE (04:25)
[2024-02-04] MEDS ORDERED: OXYC5 PO (04:27)
[2024-02-04 04:40] VITALS: BP 169/85
== END 2024-02-04 04:52 | disposition home or self-care (01) ==
LOC: ER 02:44
DX: M54.2 Cervicalgia (principal); Z87.891 Personal history of nicotine dependence; Z88.2 Allergy status to sulfonamides; Z88.1 Allergy status to other antibiotic agents; Z79.899 Other long term (current) drug therapy
CPT/HCPCS: 99283; A9270